=== PATIENT | female | born 1975 | race Caucasian/White ===

== ENCOUNTER 2016-08-05 18:16 | Emergency (ER) | payer OTHER | END 2016-08-05 20:06 | disposition home or self-care (01) | LOC: D.ER 18:16 | DX: S20.211A Contusion of right front wall of thorax, initial encounter (principal); W19.XXXA Unspecified fall, initial encounter; Y93.89 Activity, other specified; Y92.89 Other specified places as the place of occurrence of the external cause; I10 Essential (primary) hypertension ==

== ENCOUNTER 2018-08-03 08:47 | Emergency (ER) | payer OTHER ==
[~2018-08-03] VITALS: Ht 167.6 cm; Wt 110.0 kg
[2018-08-03 08:57] VITALS: Ht 167.6 cm; Wt 110.0 kg
[2018-08-03] MEDS ORDERED: COZAAR100 MG PO (08:58)
[2018-08-03] MEDS ORDERED: MOBIC7.5 MG PO (08:58)
[2018-08-03] MEDS ORDERED: NORVASC10 MG PO (08:58)
[2018-08-03] MEDS ORDERED: ZANAFLEX4 MG PO (08:59)
[2018-08-03] MEDS ORDERED: CATAPRES0.1 MG PO (08:59)
[2018-08-03] MEDS ORDERED: TORADOL10 MG PO (10:28)
[2018-08-03 11:16] VITALS: BP 138/74
== END 2018-08-03 11:18 | disposition home or self-care (01) ==
LOC: D.ER 08:47
DX: S39.012A Strain of muscle, fascia and tendon of lower back, initial encounter (principal); X50.0XXA Overexertion from strenuous movement or load, initial encounter; X50.9XXA Other and unspecified overexertion or strenuous movements or postures, initial encounter; Y93.89 Activity, other specified; Y92.89 Other specified places as the place of occurrence of the external cause